=== PATIENT | male | born 1965 ===

== ENCOUNTER 2020-08-03 10:32 | Outpatient (CLI) | payer OTHER ==
--- NOTE | 2020-08-03 10:59 | ULT ---
EXAM: Right upper quadrant ultrasound PROVIDED CLINICAL HISTORY: Elevated LFTs COMPARISON: None FINDINGS: Visualized portions of the pancreas and IVC appear normal. Liver demonstrates no mass or intrahepatic biliary ductal dilatation. Common duct is nondilated. Gallbladder demonstrates no stones, wall thickening or pericholecystic flu id. Right kidney demonstrates no hydronephrosis or mass. IMPRESSION: Unremarkable right upper quadrant ultrasound.
== END 2020-08-03 10:33 | disposition home or self-care (01) ==
LOC: BICULT 10:32
PROVIDERS: ATTEND Family Medicine
DX: R79.89 Other specified abnormal findings of blood chemistry (principal)
CPT/HCPCS: 76705